=== PATIENT | female | born 1975 | race Caucasian/White ===

== ENCOUNTER → 2016-12-24 | Outpatient (CLI) | payer OTHER ==
--- NOTE | ~2016-12-24 | EEG ---
[facility] [address] [place] [address] ELECTROENCEPHALOGRAM Name: KACIE BRIGGS Room #: [facility]ITAL[facility]#: [id number] Admission: 12/24/16 Attend Phys: Yazmin Soni Discharge: Date of : 79 Report #: [id number] THIS REPORT FOR: //name// CC: SUZANNE physician/PCP Faheem Nichols DATE OF SERVICE: 12/24/2016 This patient is being evaluated for the possibility of seizure. EEG was done by placing the electrodes by standard 10-20 system of electrode placement. Both referential and sequential montages were used for recording. Background activity in this patient's EEG is about 11 Hz and 40 microvolts. It is a symmetrical activity. Photic stimulation and hypoventilation is unremarkable. This patient became drowsy that is associated with bilateral slowing and vertex sharp waves. Throughout the record, no active epileptiform activity was noticed. IMPRESSION: This patient's EEG is within normal limits. Thank you very much for this referral. By: [id number] Mike Shah MD /shalom
== END ==
LOC: NEURO 13:19
DX: R07.9 Chest pain, unspecified (principal)